=== PATIENT | female | born 1955 | race Caucasian/White ===

== ENCOUNTER → 2024-10-23 12:12 | Outpatient (REF) | payer MEDICARE, SELFPAY | LOC: HWRAD 12:12 | PROVIDERS: ATTENDING PHYSICIAN Nurse Practitioner Family; FAMILY PHYSICIAN Family Medicine | DX: R22.1 Localized swelling, mass and lump, neck (principal) | CPT/HCPCS: 76536 ==

== ENCOUNTER 2024-10-31 10:56 | Emergency (ER) | payer MEDICARE, SELFPAY ==
[2024-10-31 10:59] VITALS: BP 187/89
[2024-10-31 12:57] LABS: Hematocrit 30.5 % (37.0-47.0); Hemoglobin 10.1 g/dL (12.0-16.0); Mean Corp Hgb Conc. 33.1 g/dL (33.0-37.0); Mean Corpuscular Volume 85.2 fL (81.0-99.0); Nucleated Red Blood Cells % 0 %; Platelet Count 165 10^3/uL (130-400); Red Cell Dist. Width 14.0 % (11.5-14.5)
[2024-10-31 13:23] LABS: ALT (SGPT) 26 U/L (0-35); AST (SGOT) 30 U/L (14-36); Albumin 3.7 g/dl (3.5-5.0); Alkaline Phosphatase 84 U/L (38-126); Blood Urea Nitrogen 35 mg/dl (7-17); Calcium 10.5 mg/dl (8.4-10.2); Carbon Dioxide 20 mmol/L (22-30); Chloride 110 mmol/L (98-107); Glucose 110 mg/dl (70-99); Potassium 4.7 mmol/L (3.5-5.1); Sodium 140 mmol/L (135-145); Total Protein 7.4 g/dl (6.3-8.2); eGFR > 60.00
[2024-10-31 13:33] LABS: Troponin I 0.018 ng/ml
--- NOTE | 2024-10-31 13:49 | ED.GENMED ---
History of Present Illness
General
Chief Complaint: Heart Rate Problem
Source: patient
Time Seen by Provider: 10/31/24 13:48
History of Present Illness
History of Present Illness:
68-year-old female presents to the emergency room for evaluation of palpitations, elevated blood pressure. Patient has a history of hypothyroidism for which she was taking Synthroid. However routine blood testing earlier in the year showed that
her thyroid tests were abnormal. The dose of her Synthroid was titrated down without improvement of her thyroid studies. It was ultimately discontinued in June. Most recent thyroid studies were still abnormal. While this was ongoing the patient
noticed that she had a lump or abnormal mass in her neck. A thyroid ultrasound was obtained and a ENT consult was ordered. Patient had the ultrasound on October 23. The ultrasound showed an enlarged, multinodular thyroid gland up to 4 cm within the
left midpole. Patient was seen by the ears nose throat doctor today. She felt like the patient needed further imaging and needed intervention by endocrinology before any ENT intervention was appropriate. Patient was able to get an appointment
with the chief engineer waterworks any earlier than her already scheduled appointment prompting her to come to the emergency room today. In addition to the abnormal thyroid test the patient has been experiencing shortness of breath with minimal exertion, an
approximate 50 pound weight loss over the past 7 months. She has heat intolerance. Her appetite is nonexistent.
Past History
Past History
ED Past Medical History: GERD, HTN and Hypothyroidism
Social History
Personal:
Phy Exam
Physical Exam
Physical Exam:
General: Awake, Alert, Oriented X3. No acute distress. High BMI
Vitals: Tachycardic
Head: Atraumatic
Eyes: Pupils equal, EOMI
Throat: Airway intact, no exudates
Neck: Trachea midline, entire thyroid seems enlarged but particularly firm and enlarged on the left
Lungs: Clear and equal b/l
Heart: Regular rate, no murmurs
Abd: Soft, Nontender, No pulsatile mass
Neuro: Nonfocal
Skin: Warm, dry, no rash
Extremities: pulses equal b/l, no edema
Course
Orders/Labs/Results
Orders:
Orders
10/31/24 10:57
EKG [Electrocardiogram (*1)] Urgent
Reason for Study: Palpitations
EKG- Treatment ONCE
10/31/24 12:33
IV Insert/Care/Rem.- Treatment PRN
10/31/24 12:44
Complete Blood Count/With Diff Urgent
Comprehensive Metabolic Panel Urgent
Free T4 Urgent
NT-proBNP Urgent
TSH Reflex To Free T4 Urgent
Troponin I Urgent
10/31/24 14:21
CR Chest - 2 Views Urgent
Comment:
Reason For Exam: shortness of breath with exertion
10/31/24 15:13
Methimazole [Tapazole] 10 mg PO NOW STA
Abnormal Lab Results
10/31/24
12:44
RBC 3.58 L 10^6/uL
(4.20-5.40)
Hgb 10.1 L g/dL
(12.0-16.0)
Hct 30.5 L %
(37.0-47.0)
MPV 10.8 H fL
(7.4-10.4)
Absolute Monos (auto) 0.8 H 10^3/uL
(0.1-0.6)
Lymphocytes % 15.9 L %
(20.5-51.1)
Chloride 110 H mmol/L
(98-107)
Carbon Dioxide 20 L mmol/L
(22-30)
BUN 35 H mg/dl
(7-17)
Glucose 110 H mg/dl
(70-99)
Calcium 10.5 H mg/dl
(8.4-10.2)
TSH (Reflex) < 0.02 L uIU/ml
(0.47-4.68)
Free T4 4.62 H ng/dl
(0.78-2.19)
10/31/24 12:44
10/31/24 12:44
Vital Signs
Initial and Last Documented VS:
Initial Vital Signs
Temp Pulse Resp BP Pulse Ox
98.4 F 116 18 187/89 98
10/31/24 10:59 10/31/24 10:59 10/31/24 10:59 10/31/24 10:59 10/31/24 10:59
Last Documented Vital Signs
Temp Pulse Resp BP Pulse Ox
98.4 F 98 24 155/67 98
10/31/24 10:59 10/31/24 15:15 10/31/24 15:15 10/31/24 15:06 10/31/24 15:15
MDM/Problems Addressed
Differential Diagnosis Includes:
Electrolyte abnormality, hyperthyroidism,, cervical lymphadenopathy/lymphoma
MDM/Problems Addressed:
68-year-old female presents with signs and symptoms concerning for hyperthyroidism. I reviewed the ultrasound that was performed here in October 23 which shows a enlarged multinodular thyroid gland. TSH is nonexistent. T4 is quite high. Discussed
with endocrinology on-call. They recommend starting methimazole. They specifically recommend not obtaining a CT with IV contrast as this will affect the ability to obtain a thyroid uptake scan which he feels is the most appropriate study for the
patient at this time. Patient states she does have an appointment with an chief engineer waterworks on Tuesday.
*Radiology
Radiology exam reviewed: radiology read reviewed
*Pulse Oximetry
SaO2: 98
Oxygen Mode of Delivery: Room air
Patient hypoxic: no
*EKG
Interpreted by ED Provider?: Yes
Interpretation: abnormal
Comparison EKG: changes noted (increased rate)
Heart Rate: 112
Rate: tachycardiac
Rhythm: sinus tachycardia
Cushing: normal axis
Interval: normal interval
QRS Pattern: normal QRS
Ischemia: no ischemia
*[employer] Interpretation
Rate: tachycardiac
Interpretation: abnormal
Heart Rate: 112
Rhythm: sinus tachycardia
*Critical Care Note
Total Time (30-74mins, 75-104mins- exclusive of procedures): Not Applicable
ED Attending Note
-
Portions of this chart may have been created with voice recognition software.� Occasional wrong word or��sound alike� substitutions may have occurred due to the inherent limitations of voice recognition software.
Discharge Plan
Departure
Patient Disposition: Home (Routine Discharge)
Date of Disposition: 10/31/24
Time of Disposition: 15:33
Patient with high blood pressure during this ER visit?: Yes
Condition: Good
Discharge Problem:
Hyperthyroidism, Nodular thyroid disease
Instructions: Hyperthyroidism (overactive thyroid), BLOOD PRESSURE
Prescriptions:
New
methimazole 10 mg tablet
10 mg PO DAILY Qty: 30 0RF
No Action
allopurinol 100 MG tablet
100 mg PO DAILY
omeprazole 40 MG capsule,delayed release(DR/EC)
40 mg PO DAILY
levothyroxine 88 MCG tablet
88 mcg PO DAILY
famotidine 20 MG tablet
20 mg PO DAILY
hydrochlorothiazide [Microzide] 12.5 MG capsule
12.5 mg PO DAILY
lisinopril [Zestril] 40 MG tablet
40 mg PO DAILY
metronidazole 500 MG tablet
500 mg PO TID Qty: 20 0RF
levofloxacin 500 MG tablet
500 mg PO DAILY Qty: 7 0RF
Referrals:
Jonelle Ramos DO [Family Provider, Family Practice]
Activity Restrictions/Additional Instructions:
You were testing today shows that you have hyperthyroidism. We provided you with a copy of your labs. I discussed your presentation with Dr. High who was on-call for endocrinology. He recommends we start a medication to treat hyperthyroidism,
methimazole which I have sent a prescription to your pharmacy for. He does not believe a CT with IV contrast is in your best interest as it will prevent the testing that he feels is most appropriate. This test is a thyroid uptake scan. It must be
scheduled as an outpatient. If we were to do the CAT scan with IV contrast that study would not be able to be performed for 3 months. I understand you have a appointment with an chief engineer waterworks in 1 week. I think the best course of action is for
you to start the methimazole and obtain the testing that this chief engineer waterworks recommends.
Interventions
Interventions:
*Risk Screen - Suicide Last Done: 10/31/24 10:59
*General Assessment Last Done: 10/31/24 12:47
*Neglect/Abuse Screening Last Done: 10/31/24 10:59
*ED- Fall Risk Assessment Last Done: 10/31/24 12:47
*ED COVID-19 Vaccine History Last Done: 10/31/24 12:47
*Nursing Disposition Last Done: 10/31/24 15:47
ED- Cardiac Assessment Last Done: 10/31/24 12:47
ED- Pulmonary Assessment Last Done: 10/31/24 12:47
Discharge Date and Time
Discharge Date/Time: 10/31/24 15:48
Print Language: CUBAN
[2024-10-31 14:00] VITALS: BP 152/74
[2024-10-31 15:06] VITALS: BP 155/67
[2024-10-31 15:11] VITALS: BMI 36.1
[2024-10-31] MEDS: TAPAZOLE 10 MG PO (15:27)
== END 2024-10-31 15:48 | disposition home or self-care (01) ==
LOC: EMR 10:56
PROVIDERS: Student in an Organized Health Care Education/Training Program; EMERGENCY PHYSICIAN Emergency Medicine; FAMILY PHYSICIAN Family Medicine
DX: E05.20 Thyrotoxicosis with toxic multinodular goiter without thyrotoxic crisis or storm (principal); R00.2 Palpitations; R06.02 Shortness of breath; R00.0 Tachycardia, unspecified; I10 Essential (primary) hypertension; R63.4 Abnormal weight loss; K21.9 Gastro-esophageal reflux disease without esophagitis; Z88.6 Allergy status to analgesic agent; Z88.5 Allergy status to narcotic agent
CPT/HCPCS: 99283; 71046; 80053; 83880; 84439; 84443; 84484; 85025; 93005